=== PATIENT | female | born 1965 | race Caucasian/White ===

== ENCOUNTER 2021-10-13 12:36 | Outpatient (CLI) | payer BC, SELFPAY ==
[2021-10-13 15:47] LABS: Absolute Neutrophil Count 3.8 X10^3/uL (2.0-7.7); Basophil# 0.03 X10^3/uL; Basophil% 0.4 % (0-1); Eosinophil# 0.14 X10^3/uL; Eosinophils% 1.8 % (0-5); Hematocrit 41.3 % (37-47); Hemoglobin 14.1 g/dL (12.0-15.0); Mean Corp Hgb Conc 34.1 g/dL (32-36); Mean Corpuscular Hgb 30.9 pg (27.0-32.0); Mean Corpuscular Volume 90.4 fL (81-99); Mean Platelet Vol. 10.6 fl (6.2-12.0); Monocyte# 0.56 X10^3/uL; Monocyte% 7.1 % (0-10); NRBC Flagged by Analyzer 0 % (0-5); Neutrophil # 3.75 X10^3/uL (2.7-7.7); Neutrophil % 47.4 % (47-70); Platelet Count 303 K/mm3 (150-450); RBC Distribution Width CV 12.7 % (11.6-14.6); RBC Distribution Width SD 42.1 fl (35.1-43.9); Red Blood Count 4.57 M/mm3 (4.2-5.4); White Blood Count 7.9 K/mm3 (4.4-11.0)
[2021-10-13 16:30] LABS: Hemoglobin A1c 5.5 % (3.8-5.6); Progesterone Level 0.72 ng/mL (See Comment)
[2021-10-13 17:49] LABS: ALB/GLOB Ratio 1.1 RATIO (0.9-2.4); AST(SGOT) 16 U/L (15-37); Alanine Aminotransfer ALT/SGPT 28 U/L (13-56); Albumin, Serum 4.3 g/dL (3.2-5.0); Alkaline Phosphatase 96 U/L (45-117); Anion Gap 7 (5-15); BUN 16 mg/dL (7-18); BUN/Creat Ratio 22.8 RATIO (10-20); Calcium,Total 9.2 mg/dL (8.5-10.1); Chloride 103 mmol/L (98-107); Cholesterol 259 mg/dL (200); EST Glomerular Filtration Rate 92 mL/min (>60); Est Glom Filt Rate - Afr Amer 112 mL/min (>60); Estradiol 22.3 pg/mL; Ferritin 30 ng/mL (8-252); Globulin 3.9 g/dL (2.2-4.2); Glucose 72 mg/dL (74-106); High Density Lipoprotein 54 mg/dL; Iron 141 ug/dL (50-170); Potassium 3.5 mmol/L (3.5-5.1); Protein, Total 8.2 g/dL (6.4-8.2); Sodium Level 138 mmol/L (136-145); Triglycerides 316 mg/dL; Very Low Density Lipoprotein 63 mg/dL (5-40)
== END 2021-10-13 23:59 | disposition home or self-care (01) ==
LOC: LABSPEC 12:42
PROVIDERS: Visit Provider Nurse Practitioner Family
DX: R53.83 Other fatigue (principal); F41.9 Anxiety disorder, unspecified; U09.9 Post COVID-19 condition, unspecified; Z78.0 Asymptomatic menopausal state
CPT/HCPCS: 80053; 80061; 82627; 82670; 82728; 83036; 83540; 84144; 85025; 82626

== ENCOUNTER → 2022-08-10 | Outpatient (CLI) | payer BC, SELFPAY ==
[2022-08-10 15:47] LABS: Absolute Lymphocyte Count 2.79 X10^3/uL (0.83-4.51); Absolute Neutrophil Count 4.3 X10^3/uL (2.0-7.7); Basophil# 0.03 X10^3/uL; Basophil% 0.4 % (0-1); Eosinophil# 0.06 X10^3/uL; Eosinophils% 0.8 % (0-5); Hematocrit 39.3 % (37-47); Hemoglobin 13.7 g/dL (12.0-15.0); Lymphocyte # 2.79 X10^3/ul (0.83-4.51); Mean Corp Hgb Conc 34.9 g/dL (32-36); Mean Corpuscular Hgb 30.7 pg (27.0-32.0); Mean Corpuscular Volume 88.1 fL (81-99); Mean Platelet Vol. 10.3 fl (6.2-12.0); Monocyte# 0.39 X10^3/uL; Monocyte% 5.2 % (0-10); NRBC Flagged by Analyzer 0 % (0-5); Neutrophil # 4.25 X10^3/uL (2.7-7.7); Neutrophil % 56.2 % (47-70); Platelet Count 329 K/mm3 (150-450); RBC Distribution Width CV 13.1 % (11.6-14.6); RBC Distribution Width SD 42.2 fl (35.1-43.9); Red Blood Count 4.46 M/mm3 (4.2-5.4); White Blood Count 7.6 K/mm3 (4.4-11.0)
[2022-08-10 16:15] LABS: Hemoglobin A1c 5.6 % (3.8-5.6)
[2022-08-10 16:39] LABS: Progesterone Level 0.33 ng/mL (See Comment)
[2022-08-10 16:40] LABS: ALB/GLOB Ratio 1.2 RATIO (0.9-2.4); AST(SGOT) 15 U/L (15-37); Alanine Aminotransfer ALT/SGPT 28 U/L (13-56); Albumin, Serum 4.2 g/dL (3.2-5.0); Alkaline Phosphatase 93 U/L (45-117); Anion Gap 9 (5-15); BUN 9 mg/dL (7-18); BUN/Creat Ratio 15.3 RATIO (10-20); Calcium,Total 9.7 mg/dL (8.5-10.1); Chloride 104 mmol/L (98-107); Cholesterol 267 mg/dL (200); Creatinine, Serum 0.59 mg/dL (0.55-1.02); EST Glomerular Filtration Rate 112 mL/min (>60); Est Glom Filt Rate - Afr Amer 136 mL/min (>60); Estradiol < 11.0 pg/mL; Globulin 3.6 g/dL (2.2-4.2); Glucose 88 mg/dL (74-106); High Density Lipoprotein 59 mg/dL; Potassium 4.4 mmol/L (3.5-5.1); Protein, Total 7.8 g/dL (6.4-8.2); Sodium Level 142 mmol/L (136-145); Triglycerides 128 mg/dL; Very Low Density Lipoprotein 26 mg/dL (5-40)
== END | disposition home or self-care (01) ==
PROVIDERS: Referring Provider Nurse Practitioner Family; Visit Provider Nurse Practitioner Family
DX: I10 Essential (primary) hypertension (principal); R53.83 Other fatigue; E28.39 Other primary ovarian failure
CPT/HCPCS: 80053; 80061; 82627; 82670; 83036; 84144; 84403; 85025; 82626

== ENCOUNTER → 2022-09-01 | Outpatient (CLI) | payer BC, SELFPAY ==
--- NOTE | 2022-09-01 12:55 | ECHOD_ITS ---
Reason For Study: Edema Procedure This was a 2D Doppler, Color Flow transthoracic echocardiogram. Exam performed in department. Left Ventricle Normal LV size. The estimated ejection fraction is 70 %. No evidence for diastolic dysfunction. No regional wall motion abnormalities noted. Right Ventricle Normal RV size. Normal systolic function. Atria Normal left atrium. Normal right atrium. No doppler evidence for ASD. Bubble contrast study negative for right to left interatrial shunt. Mitral Valve There is no mitral valve stenosis. No mitral valve insufficiency. Tricuspid Valve There is no tricuspid stenosis. Trivial tricuspid valve insufficiency. Unable to estimate RV systolic pressure due to insufficient tricuspid regurgitant envelope. Aortic Valve Trisinus/trileaflet aortic valve. There is no aortic stenosis. No aortic valve insufficiency. Pulmonic Valve There is no pulmonic valvular stenosis. No pulmonic valve insufficiency. Great Vessels Normal aortic root. Pericardium/Pleural No pericardial effusion. Medication 20 gauge I.V. with prn adaptor inserted into left arm. Performed a rapid injection of agitated mix of 9 cc saline and 1cc air to assess for atrial septal defect. MMode/2D Measurements & Calculations LVIDd: 4.5 cm IVSd: 0.70 cm Ao root diam: 3.1 cm LVIDs: 2.4 cm LVPWd: 0.89 cm LA dimension: 3.9 cm RVDd: 3.1 cm FS: 46.8 % LAV(MOD-bp): 31.1 ml LA A4 area: 14.0 cm2 RA A4 area: 12.5 cm2 LAV(MOD-bp) Indexed: 14.9 ml/m2 LAV(MOD-sp2): 27.3 ml LAV(MOD-sp4): 34.4 ml Time Measurements MV dec time: 0.20 sec Doppler Measurements & Calculations MV E max best: 95.8 cm/sec Lat Peak E' Best: 12.7 cm/sec Med Peak E' Best: 10.6 cm/sec MV A max best: 89.7 cm/sec E/E' lat: 7.5 E/E' med: 9.0 MV E/A: 1.1 MV V2 max: 104.8 cm/sec MV P1/2t max best: 104.8 cm/sec Ao V2 max: 162.0 cm/sec MV max P.4 mmHg MV P1/2t: 65.1 msec Ao max P.5 mmHg MV V2 mean: 66.2 cm/sec MV dec slope: 471.3 cm/sec2 Ao V2 mean: 115.3 cm/sec MV mean P.0 mmHg Ao mean P.9 mmHg MV V2 VTI: 26.9 cm MVA(P1/2t): 3.4 cm2 Ao V2 VTI: 35.0 cm AV (velocity ratio): 0.84 LV V1 max: 140.5 cm/sec PA V2 max: 121.3 cm/sec LV V1 max P.9 mmHg PA V2 mean: 85.9 cm/sec LV V1 mean P.3 mmHg LV V1 mean: 96.6 cm/sec LV V1 VTI: 29.4 cm ECHO/Echo Complete Interpretation Summary The estimated ejection fraction is 70 %. No evidence for diastolic dysfunction. Ordering Physician: Rosie Arzola Performed By: Kapil Penny RCS
== END | disposition home or self-care (01) ==
PROVIDERS: Visit Provider Nurse Practitioner Family
DX: R60.9 Edema, unspecified (principal); I10 Essential (primary) hypertension; I07.1 Rheumatic tricuspid insufficiency
CPT/HCPCS: 93306; A4216

== ENCOUNTER 2022-09-26 18:38 | Emergency (ER) | payer BC, SELFPAY ==
[2022-09-26 18:39] VITALS: BP 191/74; PULSE 83; RESP 16; TEMP 37; O2SAT 99; BMI 40.2
--- NOTE | 2022-09-26 18:43 | EKG12_ITS ---
Test Reason : CP Blood Pressure : / mmHG Vent. Rate : 077 BPM Atrial Rate : 077 BPM P-R Int : 136 ms QRS Dur : 086 ms QT Int : 376 ms P-R-T Axes : 056 028 043 degrees QTc Int : 425 ms Normal sinus rhythm Cannot rule out Anterior infarct , age undetermined Abnormal ECG Confirmed by SUSAN FERGUSON, DEISY ([id number]), loan expeditor PARTH MEIER ([id number]) on 09/28/2022 9:55:37 AM Referred By: Confirmed By:DEISY DAVIS MD
--- NOTE | 2022-09-26 19:08 | RAD_ITS ---
EXAM: XR CHEST, 1 VIEW CLINICAL INDICATION: chest pain TECHNIQUE: Frontal view of the chest. This report was created using [employer] report generation technology. COMPARISON: None. FINDINGS: LUNGS AND PLEURAL SPACES: Unremarkable. No consolidation or edema. No pneumothorax. No effusion. HEART: Unremarkable. Cardiac silhouette not enlarged. MEDIASTINUM: Central airways and mediastinal contour are unremarkable. BONES/JOINTS: Unremarkable. SOFT TISSUES: Unremarkable. RAD/Chest 1 View (Portable) IMPRESSION: No radiographic evidence of acute cardiopulmonary disease. Electronically Signed: Cullen Hernandez MD at 19:38 EDT ,
[2022-09-26 19:28] LABS: Absolute Lymphocyte Count 4.12 X10^3/uL (0.83-4.51); Absolute Neutrophil Count 5.8 X10^3/uL (2.0-7.7); Basophil# 0.02 X10^3/uL; Basophil% 0.2 % (0-1); Eosinophil# 0.11 X10^3/uL; Hematocrit 41.1 % (37-47); Hemoglobin 13.8 g/dL (12.0-15.0); Lymphocyte # 4.12 X10^3/ul (0.83-4.51); Lymphocyte % 38.1 % (19-41); Mean Corp Hgb Conc 33.6 g/dL (32-36); Mean Corpuscular Hgb 31.1 pg (27.0-32.0); Mean Corpuscular Volume 92.6 fL (81-99); Mean Platelet Vol. 9.7 fl (6.2-12.0); Monocyte# 0.71 X10^3/uL; Monocyte% 6.6 % (0-10); NRBC Flagged by Analyzer 0 % (0-5); Neutrophil # 5.82 X10^3/uL (2.7-7.7); Neutrophil % 53.7 % (47-70); Platelet Count 310 K/mm3 (150-450); RBC Distribution Width CV 13.4 % (11.6-14.6); RBC Distribution Width SD 45.6 fl (35.1-43.9); Red Blood Count 4.44 M/mm3 (4.2-5.4); White Blood Count 10.8 K/mm3 (4.4-11.0)
[2022-09-26 20:02] LABS: Anion Gap 4 (5-15); BUN 16 mg/dL (7-18); BUN/Creat Ratio 22.2 RATIO (10-20); Calcium,Total 9.1 mg/dL (8.5-10.1); Chloride 102 mmol/L (98-107); Creatinine, Serum 0.72 mg/dL (0.55-1.02); EST Glomerular Filtration Rate 89 mL/min (>60); Est Glom Filt Rate - Afr Amer 108 mL/min (>60); Estimated Creatinine Clearance 79.44 ml/min; Glucose 91 mg/dL (74-106); Potassium 3.6 mmol/L (3.5-5.1); Sodium Level 136 mmol/L (136-145); Troponin-I HS 4 pg/mL (3.0-54.0)
[2022-09-26 20:55] VITALS: PULSE 89; RESP 17; O2SAT 99
--- NOTE | 2022-09-26 21:04 | EDS_ITS ---
HPI History of Present Illness Chief Complaint: Chest Pain Informant: patient and other (PE at urgent care) Onset/Context/Timing Onset: Today, Yesterday and Month(s) (June and August) Activity at onset: sudden Timing: Intermittent (Hours) Quality: Positive for - (There is a musculoskeletal component, pleuritic component and a discomfort in the middle of her chest as well) Current Severity: Mild Maximum Severity: Moderate Worsened By: Movement of Torso and Breathing Relieved By: Nothing Associated Symptoms: Negative for Nausea, Vomiting, Diaphoresis, Dyspnea, Cough, Fever, Lightheadedness, Acid Reflux or Palpitations Narrative Narrative: Patient is a 57-year-old woman with no known history of coronary disease or VTE. She presents because of chest discomfort she experienced in June and in August. She had pain that started yesterday and lasted for hours. She was pain-free when she went to bed. When she awoke she is not certain whether she had pain or not. The pain did not awaken her from sleep. The pain is lasted hours as well. Pain does not radiate. There is a musculoskeletal component which is made worse with turning of her torso. There is also discomfort when she breeze. She denies associated symptoms. She denies radiation of the pain. She denies leg pain, swelling or discoloration. She has no risk factors for VTE. She denies upper abdominal pain. She denies intolerance to greasy or fried foods. Prior Similar Symptoms: No Recent Illness/Hospitalization: No CVD Risk Factors: Positive for Hypertension and Hypercholesterolemia; Negative for Diabetes, Family History 1' </=55 or Smoking PE Risk Factors: Negative for Recent Travel/Surgery, Recent Immobilization, [place] or DVT or PE, Cancer or OCP + Smoking + >/=35 TAD Risk Factors: Negative for Marfan's Syndrome or Family History PFSH PFSH Medical History no medical history no medical history (Documented in the HPI.) Allergy/AdvReac Type Severity Reaction Status Date / Time No Known Allergies Allergy Verified 09/26/22 18:42 Social History (Updated 09/26/22 @ 21:[address] Arnie Zaldivar MD) household members: spouse Smoking Status: Never smoker substance use type: does not use ROS ROS ED Constitutional Constitutional ED: Denies chills, fever(s), subjective, sweats or weight loss Eyes Eyes: Reports none; Denies blurry vision, change in vision or diplopia ENT ENT ED: Denies ear pain, rhinorrhea or sore throat Cardiovascular Cardiovascular: Reports as per HPI; Denies orthopnea or paroxysmal nocturnal dyspnea Respiratory/Chest Respiratory/Chest: Denies cough, dyspnea, dyspnea on exertion, orthopnea, paroxysmal nocturnal dyspnea or sputum Gastrointestinal Gastrointestinal: Denies abdominal pain, constipation, diarrhea, melena, nausea or vomiting Genitourinary Genitourinary ED: Denies dysuria, hematuria or urinary frequency Musculoskeletal Musculoskeletal: Denies arthralgias, back pain, myalgias or neck pain Integumentary Denies abscess, Abrasions or rash Neurologic Neurologic: Denies headache(s), paresthesias or weakness Psychiatric Psychiatric: Denies anxiety or depression Endocrine Endocrinology: Denies cold intolerance, heat intolerance, polydipsia or polyuria Hematologic/Lymphatic Hematologic/Lymphatic: Denies easy bleeding or easy bruising EXAM Physical Exam Const Vital Signs: 09/26/22 18:39 09/26/22 20:55 09/26/22 20:55 Temperature 98.6 F Temperature Source Temporal Pulse Rate 83 89 Respiratory Rate 16 17 Blood Pressure 191/74 H Blood Pressure Mean 113 Pulse Ox 99 99 Oxygen Delivery Method Room Air Room Air Room Air Positive well developed and obese; Negative for well nourished General Appearance ED: well developed and NAD; Negative for pallor Nutritional Appearance: obese HEENT Reports moist mucous membranes normocephalic and atraumatic Eyes PERRL and EOMs intact bilaterally General Eye ED: Negative for pale conjunctiva or scleral icterus Neck no lymphadenopathy, supple and no JVD General: Negative for tenderness Chest Wall inspection of chest normal and palpation of chest normal Resp normal respiratory effort Cardio regular rate, regular rhythm, S1 normal heart sound, S2 normal heart sound and no murmurs GI normal to inspection, nondistended, normoactive bowel sounds, soft to palpation, non-tender, non-distended and no masses; Negative for hepatosplenomegaly Back/Spine no CVA tenderness Extremity normal to inspection Extremity Narrative: There is no asymmetry, swelling, discoloration, leg vein distention, palpable cords or tenderness along the distribution of the deep venous system. Neuro oriented x3, CN's II-XII intact bilaterally and no sensory deficits noted Sensorium / Orientation: awake and alert Psych mental status grossly normal Psych Narrative: Patient states has been under significant stress and believes the chest pain may be due to stress. Skin no rashes or lesions noted and no wounds General Skin Exam: Negative for jaundice or pallor Heart Score History: Slightly/Non-Suspicious ECG: Normal Age: >45 - <65 years Risk Factors: 1 or 2 Risk Factors Troponin: </= Normal Limit Score: 2 MDM MDM MDM Narrative Medical decision making narrative: Presents with chest pain. Differential is noncardiac versus cardiac. Need to evaluate for pulmonary and GI as well. Nurse protocol orders were initiated. History & Record Review Discussion w/independent historian: Significant other Lab Data Attestation: I reviewed the patient's lab results. Lab results narrative: CBC is unremarkable. BMP is unremarkable. Troponin with hours of pain is normal, 4. A normal EKG normal troponin cardiac etiology has been ruled out. Labs: Laboratory Results - last 24 hr 09/26/22 09/26/22 19:16 19:16 WBC 10.8 RBC 4.44 Hgb 13.8 Hct 41.1 MCV 92.6 MCH 31.1 MCHC 33.6 RDW Std Deviation 45.6 H RDW Coeff of Olivia 13.4 Plt Count 310 MPV 9.7 Immature Gran % (Auto) 0.400 Neut % (Auto) 53.7 Lymph % (Auto) 38.1 [place] % (Auto) 6.6 Eos % (Auto) 1.0 Baso % (Auto) 0.2 Absolute Neuts (auto) 5.8 Absolute Lymphs (auto) 4.12 Nucleated RBC % 0 Sodium 136 Potassium 3.6 Chloride 102 Carbon Dioxide 30.0 Anion Gap 4 L BUN 16 Creatinine 0.72 Estim Creat Clear Calc 79.44 Est GFR (MDRD) Af Amer 108 Est GFR (MDRD) Non-Af 89 BUN/Creatinine Ratio 22.2 H Glucose 91 Calcium 9.1 Troponin I High Sens 4 Radiography Chest X-Ray - ED: 1 View and Read by ED Physician (Normal cardiac silhouette and size. Perihilar region normal. There is no widening the mediastinum. There is no abnormality the lung parenchyma. Osseous and remarkable.) Diagnostic Testing: Clinical Impression(s) from Imaging Studies Chest X-Ray 09/26/22 19:08 IMPRESSION: No radiographic evidence of acute cardiopulmonary disease. Electronically Signed: Cullen Hernandez MD at 19:38 EDT Reading Location ID and State: [facility] / [place] , Service support , EKG Initial EKG: Attestation: I personally reviewed and interpreted this EKG as follows: Interpretation: Sinus Rhythm (The EKG is normal. I disagree that the EKG reveals anterior WA. Ventricular rate 77. GA interval is under 36 ms. Cures duration 86 ms. QT duration 376 ms. 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 She is discharged to home. Discharge Plan Triage Chief Complaint: Chest Pain ED Provider: Arnie Zaldivar Dx/Rx/DC Orders Clinical Impression: Non-cardiac chest pain, Elevated cholesterol, Hypertension, Stress Instructions: Stress Relief: Relaxation, ED Chest Pain, Noncardiac Primary Care Provider: Rosie Arzola NP Referrals: NOT,DEFINED [Non-Staff] - Rosie Arzola NP, DINKEY OPERATOR [facility] [Primary Care Provider] - 3-5 Days if not improving Disposition Disposition: Home, Self Care
[2022-09-26 21:08] VITALS: PULSE 79; O2SAT 98
[2022-09-26 21:18] VITALS: BP 129/78; PULSE 74; RESP 15; O2SAT 99
== END 2022-09-26 21:23 | disposition home or self-care (01) ==
PROVIDERS: Emergency Provider Emergency Medicine; PCP Nurse Practitioner Family; Visit Provider Emergency Medicine
DX: R07.89 Other chest pain (principal); I10 Essential (primary) hypertension; E78.00 Pure hypercholesterolemia, unspecified; Z79.899 Other long term (current) drug therapy
CPT/HCPCS: 71045; 80048; 84484; 85025; 93005; 99285; A4216

== ENCOUNTER → 2024-01-18 | Outpatient (REF) | payer BC, SELFPAY ==
[2024-01-18 17:11] LABS: Estradiol 24.4 pg/mL; Free T3 2.3 pg/mL (2.18-3.98); T4 Free Direct 0.76 ng/dL (0.76-1.46)
[2024-01-20 04:07] LABS: PROGESTERONE 0.8 ng/mL (.)
== END ==
LOC: BIMLAB 15:21
PROVIDERS: PCP Nurse Practitioner Family; Referring Provider Nurse Practitioner Family; Visit Provider Nurse Practitioner Family
DX: I10 Essential (primary) hypertension (principal); E28.39 Other primary ovarian failure; R53.83 Other fatigue
CPT/HCPCS: 36415; 82627; 82670; 84144; 84403; 84439; 84481; 82626

== ENCOUNTER 2024-02-05 21:31 | Observation (INO) | payer BC, SELFPAY ==
[2024-02-05 21:35] VITALS: BP 174/85; PULSE 110; RESP 18; TEMP 36.3; O2SAT 100; BMI 28.3
[2024-02-05 21:38] VITALS: BP 178/80; PULSE 96; RESP 15; O2SAT 98
--- NOTE | 2024-02-05 21:38 | CT_ITS ---
We are attempting to reach an attending provider to discuss findings. An addendum with communication details will be sent when the communication is complete. STUDY: CTA HEAD AND NECK WITH CONTRAST REASON FOR EXAM: Female, 58 years old. Neuro deficit, acute, stroke suspected RADIATION DOSAGE (If Supplied By Facility): CTDIvol = ( 22.83 ) mGy, DLP = ( 840.29 ) mGycm TECHNIQUE: CT angiography was performed with a multi-detector CT scanner. Data acquisition was obtained from the skull base through the vertex following intravenous administration of IV 100mL [id number]-370. MIP images were reconstructed from the axial data set. Post-processing of the angiographic images was performed, with multiplanar reformation and 3D reconstruction. Individualized dose optimization techniques were used for this CT. The protocol utilizes one or more of the following dose reduction techniques: automated exposure control, adjustment of mA and/or kV according to patient size,and/or use of iterative reconstruction technique. COMPARISON: CT brain today. FINDINGS: Normal bilateral petrous carotid arteries. Normal right cavernous carotid artery with a normal supraclinoid bifurcation. Normal left cavernous carotid artery with a normal supraclinoid bifurcation. Normal right A1 segments of the anterior cerebral artery. Normal left A1 segments of the anterior cerebral artery. Normal intact anterior communicating artery (ACOM). Normal bilateral A2 segments of the anterior cerebral arteries. Normal right M1 and M2 segments of the middle cerebral arteries, with a normal M1 bifurcation. Normal left M1 and M2 segments of the middle cerebral arteries, with a normal M1 bifurcation. There is a persistent origin of the right posterior cerebral artery with absence of the posterior communicating artery (PCOM). There is a persistent origin of the left posterior cerebral artery with absence of the posterior communicating artery (PCOM). Right vertebral artery may terminate as the PICA. Left vertebral artery appears normal. Basilar artery appears atretic. The visualized bilateral superior cerebellar (SCA) arteries are normal. Normal bilateral P1, P2 and visualized P3 segments of the posterior cerebral arteries. There is no demonstrated aneurysm of the [place]. There is no demonstrated abnormality of the visualized brain. AORTIC ARCH: Normal visualized aortic arch. Normal origins of the brachiocephalic, left common carotid, and left subclavian arteries. RIGHT CAROTID ARTERIES: Normal right common carotid artery (CCA). Normal right common carotid bulb. Normal origin of the right internal carotid (ICA) artery without a hemodynamically significant stenosis. Normal visualized cervical portion of the right internal carotid artery. Normal origin of the right external carotid artery (ECA). LEFT CAROTID ARTERIES: Normal left common carotid artery (CCA). Normal left common carotid bulb. Normal origin of the left internal carotid (ICA) artery without a hemodynamically significant stenosis. Normal visualized cervical portion of the left internal carotid artery. Normal origin of the left external carotid artery (ECA). VERTEBRAL ARTERIES: Right vertebral artery appears to terminate as the PICA. Left vertebral artery appears normal. CT/STROKE CTA Head AND Neck W/Con IMPRESSION: Sensitivity limited due to suboptimal 3-D reformats otherwise Normal CTA Head and neck with contrast. Electronically Signed: Tien Dunn MD at 22:14 EDT ,
--- NOTE | 2024-02-05 21:38 | EKG12_ITS ---
Test Reason : DYSRHYTHMIA Blood Pressure : / mmHG Vent. Rate : 084 BPM Atrial Rate : 084 BPM P-R Int : 154 ms QRS Dur : 084 ms QT Int : 364 ms P-R-T Axes : 065 027 045 degrees QTc Int : 430 ms Normal sinus rhythm Possible Left atrial enlargement Low voltage QRS Borderline ECG Confirmed by Crow Kerr ([id number]), video tape editor PARTH MEIER ([id number]) on 02/06/2024 2:08:42 PM Referred By: Confirmed By:Crow Kerr
--- NOTE | 2024-02-05 21:38 | CT_ITS ---
We are attempting to reach an attending provider to discuss findings. An addendum with communication details will be sent when the communication is complete. STUDY: CT BRAIN WITHOUT CONTRAST REASON FOR EXAM: Female, 58 years old. Neuro deficit, acute, stroke suspected RADIATION DOSAGE (If Supplied By Facility): CTDIvol = ( ) mGy, DLP = ( 846.73 ) mGycm TECHNIQUE: Transaxial CT imaging of the brain was performed without administration of intravenous contrast material. Individualized dose optimization techniques were used for this CT. The protocol utilizes one or more of the following dose reduction techniques: automated exposure control, adjustment of mA and/or kV according to patient size,and/or use of iterative reconstruction technique. COMPARISON: No relevant priors. FINDINGS: Normal soft tissue structures. Normal calvarium. Normal size ventricles and extra-axial spaces for the patient''s age. Normal white matter tracts of the cerebral hemispheres. Normal basal ganglia and thalami. Normal brainstem. Normal cerebellum. There is no intracranial hemorrhage. There are no findings of an acute ischemic infarction. Normal visualized paranasal sinuses. CT/STROKE Brain/Head without Cont IMPRESSION: Normal unenhanced CT scan of the brain. Electronically Signed: Tien Dunn MD at 21:56 EDT ,
--- NOTE | 2024-02-05 21:39 | ED.VIS.STROK ---
HPI History of Present Illness Chief Complaint: Stroke Alert Detail of Chief Complaint: Blurred vision, numbness right side and dizziness with right occipital head Informant: patient and spouse/S.O. Onset/Context/Timing Onset: Today (Approximate 1 hour prior to presentation) Context: Sudden Onset Timing: Continuous (Patient reports vision is better. Headache has not changed. Numbness has improved) Quality and Location: Positive for Right Face Paresthesia, Right Arm Parasthesia, Right Leg Parasthesia and - (Blurred vision right eye and complains of dizziness) Current Severity: Mild Maximum Severity: Mild Worsened by: Nothing Relieved by: Nothing Associated Symptoms Associated Symptoms: Positive for Headache; Negative for Nausea, Vomiting or Chest Pain Narrative Narrative: Patient is a 58-year-old woman. She has history of hypertension. Family history of TIA/strokes who presents with blurred vision right eye, dizziness, right occipital headache, numbness right side. She denies double vision. She denies loss of vision. She denies partial loss of vision. Denies trouble with speech or swallowing. She denies cardiac respiratory symptoms. She denies GI symptoms. She denies problems with coordination or balance. Patient is upset and crying. Prior similar symptoms: No Recent Illness/Hospitalization: No PFSH [facility] Medical History (Updated 02/05/24 @ 22:[address] Arnie Zaldivar MD) Carpal tunnel syndrome Home Medications ?Medication ?Instructions ?Recorded ?Last Taken ?Type Biest 02/05/24 Unknown History losartan 100 mg tablet mg 02/05/24 Unknown History progesterone micronized 200 mg 200 mg PO QHS 02/05/24 Unknown History capsule Allergy/AdvReac Type Severity Reaction Status Date / Time No Known Allergies Allergy Verified 09/26/22 18:42 Surgical History (Updated 02/05/24 @ 22:06 by Mag Arellano) Hx of LASIK H/O spinal fusion Social History (Updated 09/26/22 @ 21:[address] Arnie Zaldivar MD) household members: spouse Smoking Status: Never smoker substance use type: does not use ROS ROS ED Constitutional Constitutional ED: Denies chills, fever(s) or subjective Eyes Eyes: Reports blurry vision right; Denies change in vision or diplopia ENT ENT ED: Denies ear pain, rhinorrhea or sore throat Cardiovascular Cardiovascular: Denies chest pain, palpitations or paroxysmal nocturnal dyspnea Respiratory/Chest Respiratory/Chest: Denies cough, dyspnea, dyspnea on exertion or paroxysmal nocturnal dyspnea Gastrointestinal Gastrointestinal: Denies abdominal pain, diarrhea, nausea or vomiting Genitourinary Genitourinary ED: Denies dysuria, hematuria or urinary frequency Musculoskeletal Musculoskeletal: Denies arthralgias, back pain, myalgias or neck pain Integumentary Denies abscess or rash Neurologic Neurologic: Reports headache(s), paresthesias and weakness Psychiatric Psychiatric: Reports anxiety; Denies depression Endocrine Endocrinology: Denies polydipsia, polyphagia or polyuria Hematologic/Lymphatic Hematologic/Lymphatic: Denies easy bleeding or easy bruising EXAM Physical Exam Const Vital Signs: 02/05/24 21:35 02/05/24 21:38 02/05/24 21:46 Temperature 97.3 F L Temperature Source Temporal Pulse Rate 110 H 96 110 H Respiratory Rate 18 15 18 Blood Pressure 174/85 H 178/80 H 174/83 H Blood Pressure Mean 114 112 113 Pulse Ox 100 98 100 Oxygen Delivery Method Room Air Room Air Room Air 02/05/24 22:08 02/05/24 22:11 Temperature Temperature Source Pulse Rate 89 Respiratory Rate 17 Blood Pressure 178/80 H Blood Pressure Mean 112 Pulse Ox 98 97 Oxygen Delivery Method Room Air Room Air Positive well nourished and well developed Constitutional Narrative: Blood pressure is elevated 174/85. Heart rate is 110. General Appearance ED: well developed and NAD HEENT Reports moist mucous membranes atraumatic Eyes PERRL and EOMs intact bilaterally Eyes Narrative: There is no nystagmus. There is no visual field cut. She still reports blurriness right eye. General Eye ED: Negative for pale conjunctiva or scleral icterus Neck no lymphadenopathy, supple and no JVD Chest Wall inspection of chest normal and palpation of chest normal Resp normal respiratory effort and clear to auscultation bilaterally Cardio no murmurs Rate: regular rate Rhythm: regular rhythm Heart Sounds: S1 normal and S2 normal GI normal to inspection, nondistended, normoactive bowel sounds, soft to palpation, non-tender, non-distended and no masses Extremity normal to inspection General Extremety ED: Negative for deformity or edema General Extremity: Negative for deformity or edema Neuro oriented x3, CN's II-XII intact bilaterally and No no sensory deficits noted Domingo Coma Scale: document GCS findings Spontaneous Obeys Commands Oriented 15 Sensorium / Orientation: alert Speech: speech normal Motor Exam: strength 5/5 throughout Psych Mood & Affect: anxious Skin no wounds General Skin Exam: Negative for jaundice Lesions: no lesions Rashes: no rashes NIHSS NIHSS Initial: 1a Level of Consciousness: 0 1b LOC Questions (Score 2 if aphasic/stupor): 0 1c LOC Commands (Only score 1st attempt): 0 2 Best Gaze (If aphasic, use reflexive mvmts.): 0 3 Visual: 0 4 Facial Palsy: 0 5 Motor Arm Right (UN = amputation/fusion): 0 5 Motor Arm Left: 0 6 Motor Leg Right: 0 6 Motor Leg Left: 0 7 Limb ataxia (Only + if out of proportion): 0 8 Sensory (Aphasia/stupor=0 or 1, coma=2): 1 9 Best Language: 0 10 Dysarthria (mute, coma=2, intubated=UN): 0 11 Extinction and Inattention (only scored if +): 0 Total Score: 1 MDM MDM MDM Narrative Medical decision making narrative: Patient with strokelike symptoms. Patient was seen in triage. Orders were then placed. Patient's NIH is 1. With complaint of dizziness and headache need to obtain CT to rule out intracranial bleed versus ischemic CVA. CT of the head as well as CTA of the head and neck were ordered per stroke protocol. Appropriate blood work was ordered. Will monitor blood pressure. If there is no evidence of hemorrhage will allow for permissive hypertension. Lab Data Attestation: I reviewed the patient's lab results. Lab results narrative: White count is slightly elevated. There is predominance of lymphocytes. Coags are unremarkable. Electrolyte panel is unremarkable. Glucose is slightly elevated 114. Labs: Laboratory Results - last 24 hr 02/05/24 21:50 WBC 11.7 H RBC 4.81 Hgb 14.4 Hct 43.0 MCV 89.4 MCH 29.9 MCHC 33.5 RDW Std Deviation 42.6 RDW Coeff of Olivia 13.1 Plt Count 322 MPV 10.0 Immature Gran % (Auto) 0.300 Neut % (Auto) 49.3 Lymph % (Auto) 42.0 H [place] % (Auto) 6.8 Eos % (Auto) 1.3 Baso % (Auto) 0.3 Absolute Neuts (auto) 5.8 Absolute Lymphs (auto) 4.90 H Nucleated RBC % 0 PT 11.6 L INR 0.9 APTT 28.2 Sodium 140 Potassium 3.3 L Chloride 104 Carbon Dioxide 28.0 Anion Gap 8 BUN 14 Creatinine 0.97 Estim Creat Clear Calc 75.26 Est GFR (MDRD) Af Amer 76 Est GFR (MDRD) Non-Af 63 BUN/Creatinine Ratio 14.4 Glucose 114 H Calcium 9.4 Troponin I High Sens 4 Radiography Diagnostic Testing: Clinical Impression(s) from Imaging Studies Brain CT 02/05/24 21:38 IMPRESSION: Normal unenhanced CT scan of the brain. Electronically Signed: Tien Dunn MD at 21:56 EDT Reading Location ID and State: [address] [place] [address] Tel , Service support , ADDENDUM: 02/05/242204 IMPRESSION: Normal unenhanced CT scan of the brain. N.B. : The above Results were Read Back by Tien Dunn MD to Arnie Zaldivar MD, and understanding confirmed on 02/05/2024 21:58:08 (ET). Electronically Signed: Tien Dunn MD at 21:56 EDT Reading Location ID and State: [address] [place] [address] Tel , Service support , ADDENDUM: 02/05/242206 IMPRESSION: Normal unenhanced CT scan of the brain. N.B. : The above Results were Read Back by Tien Dunn MD to Arnie Zaldivar MD, and understanding confirmed on 02/05/2024 22:00:25 (ET). Electronically Signed: Tien Dunn MD at 21:56 EDT Reading Location ID and State: [email or web address] / [place] Tel , Service support , Head/Neck CTA 02/05/24 21:38 IMPRESSION: Sensitivity limited due to suboptimal 3-D reformats otherwise Normal CTA Head and neck with contrast. Electronically Signed: Tien Dunn MD at 22:14 EDT Reading Location ID and State: [facility] / [place] Tel , Service support , ADDENDUM: 02/05/242221 IMPRESSION: Sensitivity limited due to suboptimal 3-D reformats otherwise Normal CTA Head and neck with contrast. N.B. : The above Results were Read Back by Tien Dunn MD to Arnie Zaldivar MD, and understanding confirmed on 02/05/2024 22:16:18 (ET). Electronically Signed: Tien Dunn MD at 22:14 EDT , EKG Initial EKG: Attestation: I personally reviewed and interpreted this EKG as follows: Interpretation: Sinus Rhythm (Sinus rhythm of 84. Parables 154 ms. QRS duration 84 ms per QT duration 3 and 64 ms. Morenci is normal. There is evidence of low voltage which may be due to body habitus.) Treatment and Re-Evaluation Narrative: The nurse informing that patient's main complaint of headache intermittently for the past week or 2. Stroke Documentation Questions Stroke Team Activated: Yes Reviewed Inclusion/Exclusion criteria: Yes No contraindications from thrombolytic administration: Yes Discharge Plan Triage Chief Complaint: Stroke Alert Other Complaint: Dizziness ED Provider: Arnie Zaldivar Dx/Rx/DC Orders Clinical Impression: Paresthesia of right upper extremity, Blurred vision, right eye, Occipital headache Prescriptions: No Action losartan 100 mg tablet Patient Comments: Take 1 tablet (100 mg) by mouth once daily. progesterone micronized 200 mg capsule 200 mg PO QHS Biest 0.25 mg cream Primary Care Provider: Rosie Arzola NP Referrals: Rosie Arzola SCIENTIFIC EDITOR, SCIENTIFIC EDITOR-C [Primary Care Provider] - Print Language: Mosotho
[2024-02-05 21:46] VITALS: BP 174/83; PULSE 110; RESP 18; O2SAT 100
[2024-02-05 21:56] VITALS: BMI 37.4
[2024-02-05 22:08] VITALS: BP 178/80; PULSE 89; RESP 17; O2SAT 98
[2024-02-05 22:08] LABS: Absolute Neutrophil Count 5.8 X10^3/uL (2.0-7.7); Basophil# 0.04 X10^3/uL; Basophil% 0.3 % (0-1); Eosinophil# 0.15 X10^3/uL; Eosinophils% 1.3 % (0-5); Hemoglobin 14.4 g/dL (12.0-15.0); Mean Corp Hgb Conc 33.5 g/dL (32-36); Mean Corpuscular Hgb 29.9 pg (27.0-32.0); Mean Corpuscular Volume 89.4 fL (81-99); Monocyte# 0.79 X10^3/uL; Monocyte% 6.8 % (0-10); NRBC Flagged by Analyzer 0 % (0-5); Neutrophil # 5.76 X10^3/uL (2.7-7.7); Neutrophil % 49.3 % (47-70); Platelet Count 322 K/mm3 (150-450); RBC Distribution Width CV 13.1 % (11.6-14.6); RBC Distribution Width SD 42.6 fl (35.1-43.9); Red Blood Count 4.81 M/mm3 (4.2-5.4); White Blood Count 11.7 K/mm3 (4.4-11.0)
[2024-02-05 22:11] VITALS: O2SAT 97
[2024-02-05 22:17] LABS: International Normalized Ratio 0.9; Prothrombin Time (Protime)PT. 11.6 SECONDS (11.7-14.9)
[2024-02-05 22:18] LABS: Partial Thromboplast Time 28.2 Seconds (24.1-36.2)
[2024-02-05 22:28] LABS: Anion Gap 8 (5-15); BUN 14 mg/dL (7-18); BUN/Creat Ratio 14.4 RATIO (10-20); Calcium,Total 9.4 mg/dL (8.5-10.1); Chloride 104 mmol/L (98-107); Creatinine, Serum 0.97 mg/dL (0.55-1.02); EST Glomerular Filtration Rate 63 mL/min (>60); Est Glom Filt Rate - Afr Amer 76 mL/min (>60); Estimated Creatinine Clearance 75.26 ml/min; Glucose 114 mg/dL (74-106); Potassium 3.3 mmol/L (3.5-5.1); Sodium Level 140 mmol/L (136-145); Troponin-I HS 4 pg/mL (3.0-54.0)
--- NOTE | 2024-02-05 22:42 | RAD_ITS ---
STUDY: X-RAY CHEST REASON FOR EXAM: Female, 58 years old. Neuro deficit, acute, stroke suspected TECHNIQUE: Single frontal view of the chest. COMPARISON: September 26, 2022 FINDINGS: The lungs are clear and expanded. There is no demonstrated pleural abnormality. Normal size heart. Normal mediastinum and garcía. Normal visualized pulmonary arteries. Normal visualized aortic arch and descending thoracic aorta. Normal visualized thoracic spine. Normal visualized ribs, clavicles, and shoulders. There is no demonstrated abnormality of the visualized soft tissue structures of the upper abdomen. RAD/Chest 1 View IMPRESSION: Normal x-ray examination of the chest. Electronically Signed: Tien Dunn MD at 23:11 EDT ,
[2024-02-05 23:00] VITALS: BP 161/78; PULSE 97; RESP 18; O2SAT 100; BMI 40.4
--- NOTE | 2024-02-05 23:23 | PCM.HP.STD ---
HPI - General General Date of Admission: 02/05/24 Date of Service: 02/05/24 Chief Complaint: Right eye blurry vision and right sided weakness HPI Narrative GARTH BARBER, is a 58 F who presents to the hospital due to acute change in vision in her right eye along with right arm and leg weakness. Onset of symptoms began earlier this evening when patient was playing cards with her family she states she suddenly had a headache that was in the right occipital region of her head followed by increasing blurry vision in her right eye and weakness of her right arm and leg. The symptoms were transient and subsequently have resolved completely since her arrival into the emergency room. CT of the head was within normal limits as was CT angiogram of head and neck. Teleneurology consult was obtained and felt necessary to admit the patient for observation to get an MRI in the morning as well as an echocardiogram. Patient currently has an NIH scale 0. She does not routinely follow with any medical practitioner however she has been diagnosed with hypertension and takes medication for that. She admits to being more holistic in her approach to medicine and does not believe in traditional medicine per se. Currently the patient denies any chest pain, shortness of breath, fevers chills nausea vomiting or diarrhea. Patient will be admitted to progressive care unit for observation and workup as above [facility] Medical History (Updated 02/05/24 @ 23:[address] Jorge Wiggins MD) Carpal tunnel syndrome Home Medications ?Medication ?Instructions ?Recorded ?Last Taken ?Type Biest 02/05/24 Unknown History losartan 100 mg tablet mg 02/05/24 Unknown History progesterone micronized 200 mg 200 mg PO QHS 02/05/24 Unknown History capsule Allergy/AdvReac Type Severity Reaction Status Date / Time No Known Allergies Allergy Verified 09/26/22 18:42 Surgical History (Updated 02/05/24 @ 22:06 by Mag Arellano) Hx of LASIK H/O spinal fusion Social History (Updated 09/26/22 @ 21:[address] Arnie Zaldivar MD) household members: spouse Smoking Status: Never smoker substance use type: does not use ROS Constitutional Constitutional: Denies chills or fever(s) Eyes Eyes: Reports blurry vision and change in vision ENT HEENT: Denies abnormal hearing Cardiovascular Cardiovascular: Denies chest pain Respiratory/Chest Respiratory/Chest: Denies shortness of breath at rest Gastrointestinal Gastrointestinal: Denies abdominal pain Genitourinary Genitourinary: Denies dysuria Musculoskeletal Musculoskeletal: Reports muscle weakness; Denies back pain Integumentary Integumentary: Denies dry skin Neurologic Neurologic: Denies abnormal speech Psychiatric Psychiatric: Denies anxiety Vital Signs Vital Signs Vital Signs: 02/05/24 21:35 02/05/24 21:38 02/05/24 21:46 Temperature 97.3 F L Temperature Source Temporal Pulse Rate 110 H 96 110 H Respiratory Rate 18 15 18 Blood Pressure 174/85 H 178/80 H 174/83 H Blood Pressure Mean 114 112 113 Pulse Ox 100 98 100 Oxygen Delivery Method Room Air Room Air Room Air 02/05/24 22:08 02/05/24 22:11 Temperature Temperature Source Pulse Rate 89 Respiratory Rate 17 Blood Pressure 178/80 H Blood Pressure Mean 112 Pulse Ox 98 97 Oxygen Delivery Method Room Air Room Air Weight Weight: 224 lb 13.944 oz Body Mass Index (BMI) 37.4 Physical Exam Const alert, oriented x3, no apparent distress and well nourished General Appearance: cooperative and well developed HEENT normocephalic, head/scalp atraumatic, moist oral mucous membranes and oropharynx normal Eyes PERRL and EOMs intact bilaterally Neck no lymphadenopathy, supple and no JVD General: trachea midline; Negative for lymphadenopathy Lymph Lymphatic: Negative for no lymphadenopathy noted Resp normal respiratory effort, normal air movement and clear to auscultation bilaterally Cardio regular rate, regular rhythm, S1 normal heart sound, S2 normal heart sound and no murmurs GI normal to inspection, nondistended, normoactive bowel sounds Extremity normal capillary refill Skin General Skin Exam: no breakdown Neuro CN's II-XII intact bilaterally, no focal motor deficits and no sensory deficits noted Coordination / Balance: [id number] test normal and [id number] test normal Speech: speech normal Motor Exam: strength 5/5 throughout Psych thought process normal, cooperative and affect normal Appearance: appropriate Results Lab / Micro Data 02/05/24 21:50 02/05/24 21:50 Labs: Laboratory Results - last 24 hr 02/05/24 21:50: WBC 11.7 H, RBC 4.81, Hgb 14.4, Hct 43.0, MCV 89.4, MCH 29.9, MCHC 33.5, RDW Std Deviation 42.6, RDW Coeff of Olivia 13.1, Plt Count 322, MPV 10.0, Immature Gran % (Auto) 0.300, Neut % (Auto) 49.3, Lymph % (Auto) 42.0 H, [place] % (Auto) 6.8, Eos % (Auto) 1.3, Baso % (Auto) 0.3, Absolute Neuts (auto) 5.8, Absolute Lymphs (auto) 4.90 H, Nucleated RBC % 0, PT 11.6 L, INR 0.9, APTT 28.2, Sodium 140, Potassium 3.3 L, Chloride 104, Carbon Dioxide 28.0, Anion Gap 8, BUN 14, Creatinine 0.97, Estim Creat Clear Calc 75.26, Est GFR (MDRD) Af Amer 76, Est GFR (MDRD) Non-Af 63, BUN/Creatinine Ratio 14.4, Glucose 114 H, Calcium 9.4, Troponin I High Sens 4 Imaging Radiology Impression Brain CT 02/05/24 21:38 IMPRESSION: Normal unenhanced CT scan of the brain. Electronically Signed: Tien Dunn MD at 21:56 EDT Reading Location ID and State: [facility] / [place] Tel , Service support , ADDENDUM: 02/05/242204 IMPRESSION: Normal unenhanced CT scan of the brain. N.B. : The above Results were Read Back by Tien Dunn MD to Arnie Zaldivar MD, and understanding confirmed on 02/05/2024 21:58:08 (ET). Electronically Signed: Tien Dunn MD at 21:56 EDT , ADDENDUM: 02/05/242206 IMPRESSION: Normal unenhanced CT scan of the brain. N.B. : The above Results were Read Back by Tien Dunn MD to Arnie Zaldivar MD, and understanding confirmed on 02/05/2024 22:00:25 (ET). Electronically Signed: Tien Dunn MD at 21:56 EDT , Head/Neck CTA 02/05/24 21:38 IMPRESSION: Sensitivity limited due to suboptimal 3-D reformats otherwise Normal CTA Head and neck with contrast. Electronically Signed: Tien Dunn MD at 22:14 EDT , ADDENDUM: 02/05/24 2222 IMPRESSION: Sensitivity limited due to suboptimal 3-D reformats otherwise Normal CTA Head and neck with contrast. N.B. : The above Results were Read Back by Tien Dunn MD to Arnie Zaldivar MD, and understanding confirmed on 02/05/2024 22:16:18 (ET). Electronically Signed: Tien Dunn MD at 22:14 EDT , Chest X-Ray 02/05/24 22:42 IMPRESSION: Normal x-ray examination of the chest. Electronically Signed: Tien Dunn MD at 23:11 EDT , Assessment & Plan Assessment/Plan (1) Occipital headache: (2) TIA (transient ischemic attack): PLAN: Plan 1 transient ischemic attack?admit patient to progressive care unit, neurochecks per routine, order MRI noncontrast of head in the morning along with transthoracic echocardiogram. Will also order fasting lipid panel and BMP in the a.m. Would recommend patient continue with baby aspirin as outpatient and have close outpatient follow-up with her primary care doctor 2. Occipital headache?resolved for now we will watch for recurrence 3. DVT prophylaxis?low molecular weight heparin Charges/Coding Visit Charges Inpatient E&M: 19178 Init Hosp L2
[2024-02-05] MEDS: Ondansetron 4 MG/2 ML Vial IV (23:41)
[2024-02-06] VITALS (9 sets, daily range): BP systolic 142–173; BP diastolic 68–80; PULSE 70–112; RESP 16–18; TEMP 36.7–36.9; O2SAT 93–100; BMI 39.2
[2024-02-06 00:41] LABS: Cholesterol 260 mg/dL (200); High Density Lipoprotein 41 mg/dL; Triglycerides 468 mg/dL
--- NOTE | 2024-02-06 05:55 | MRI_ITS ---
HISTORY: TIA. TECHNIQUE: Multiplanar and multisequence MR images of the brain were obtained without contrast. 292 images. COMPARISON: CT prior day. FINDINGS: BRAIN PARENCHYMA: Very mild chronic white matter changes. No abnormal focus of restricted diffusion. No acute intracranial hemorrhage identified. CSF SPACES: Cerebral ventricles, cortical sulci, and other extra-axial CSF spaces within normal limits in size for age with a partially empty sella configuration. No significant midline shift or other mass effect.No extra-axial fluid collection. VASCULAR SYSTEM: Major intracranial flow voids are maintained. PARANASAL SINUSES AND MASTOID AIR CELLS: No significant air fluid levels. ORBITS: Symmetric contents. MRI/Brain without Contrast IMPRESSION: No evidence for acute infarct. Mild chronic white matter changes. Electronically Signed: Arline Pak MD at 15:14 EDT ,
[2024-02-06 06:49] LABS: Anion Gap 8 (5-15); BUN 13 mg/dL (7-18); Calcium,Total 8.9 mg/dL (8.5-10.1); Chloride 106 mmol/L (98-107); Creatinine, Serum 0.76 mg/dL (0.55-1.02); EST Glomerular Filtration Rate 83 mL/min (>60); Est Glom Filt Rate - Afr Amer 100 mL/min (>60); Estimated Creatinine Clearance 100.47 ml/min; Glucose 106 mg/dL (74-106); Potassium 3.8 mmol/L (3.5-5.1); Sodium Level 139 mmol/L (136-145)
--- NOTE | 2024-02-06 07:29 | PCM.PN.HOSP ---
Reason for Visit Reason for Visit: Diagnoses Transient cerebral ischemic attack, unspecified (02/05/24) Headache, unspecified (02/05/24) Objective Data Objective Data Vital Signs: Vital Signs Temp Pulse Resp BP Pulse Ox O2 Del Method 98.4 F 70 18 142/68 H 96 Room Air 02/06/24 02:58 02/06/24 02:58 02/06/24 02:58 02/06/24 02:58 02/06/24 02:58 02/06/24 02:58 Oxygen Delivery Method Room Air Weight: 235 lb 14.314 oz Body Mass Index (BMI) 39.2 Lab / Micro Data 02/05/24 21:50 02/06/24 05:31 Labs: Laboratory Results - last 24 hr 02/05/24 21:50: WBC 11.7 H, RBC 4.81, Hgb 14.4, Hct 43.0, MCV 89.4, MCH 29.9, MCHC 33.5, RDW Std Deviation 42.6, RDW Coeff of Olivia 13.1, Plt Count 322, MPV 10.0, Immature Gran % (Auto) 0.300, Neut % (Auto) 49.3, Lymph % (Auto) 42.0 H, Ellis % (Auto) 6.8, Eos % (Auto) 1.3, Baso % (Auto) 0.3, Absolute Neuts (auto) 5.8, Absolute Lymphs (auto) 4.90 H, Nucleated RBC % 0, PT 11.6 L, INR 0.9, APTT 28.2, Sodium 140, Potassium 3.3 L, Chloride 104, Carbon Dioxide 28.0, Anion Gap 8, BUN 14, Creatinine 0.97, Estim Creat Clear Calc 75.26, Est GFR (MDRD) Af Amer 76, Est GFR (MDRD) Non-Af 63, BUN/Creatinine Ratio 14.4, Glucose 114 H, Calcium 9.4, Troponin I High Sens 4, Triglycerides 468 H, Cholesterol 260 H, LDL Cholesterol TNP, VLDL Cholesterol TNP, HDL Cholesterol 41 02/06/24 05:31: Sodium 139, Potassium 3.8, Chloride 106, Carbon Dioxide 25.0, Anion Gap 8, BUN 13, Creatinine 0.76, Estim Creat Clear Calc 100.47, Est GFR (MDRD) Af Amer 100, Est GFR (MDRD) Non-Af 83, BUN/Creatinine Ratio 17.0, Glucose 106, Calcium 8.9 Radiography Diagnostic Testing: Radiology Impression Brain CT 02/05/24 21:38 IMPRESSION: Normal unenhanced CT scan of the brain. Electronically Signed: Tien Dunn MD at 21:56 EDT Reading Location ID and State: [address] [place] [address] Tel , Service support , ADDENDUM: 02/05/24 2205 IMPRESSION: Normal unenhanced CT scan of the brain. N.B. : The above Results were Read Back by Tien Dunn MD to Arnie Zaldivar MD, and understanding confirmed on 02/05/2024 21:58:08 (ET). Electronically Signed: Tien Dunn MD at 21:56 EDT Reading Location ID and State: [address] [place] [address] Tel , Service support , ADDENDUM: 02/05/242206 IMPRESSION: Normal unenhanced CT scan of the brain. N.B. : The above Results were Read Back by Tien Dunn MD to Arnie Zaldivar MD, and understanding confirmed on 02/05/2024 22:00:25 (ET). Electronically Signed: Tien Dunn MD at 21:56 EDT Reading Location ID and State: [address] [place] [address] Tel , Service support , Head/Neck CTA 02/05/24 21:38 IMPRESSION: Sensitivity limited due to suboptimal 3-D reformats otherwise Normal CTA Head and neck with contrast. Electronically Signed: Tien Dunn MD at 22:14 EDT Reading Location ID and State: [address] [place] [address] Tel , Service support , ADDENDUM: 02/05/24 2222 IMPRESSION: Sensitivity limited due to suboptimal 3-D reformats otherwise Normal CTA Head and neck with contrast. N.B. : The above Results were Read Back by Tien Dunn MD to Arnie Zaldivar MD, and understanding confirmed on 02/05/2024 22:16:18 (ET). Electronically Signed: Tien Dunn MD at 22:14 EDT , Chest X-Ray 02/05/24 22:42 IMPRESSION: Normal x-ray examination of the chest. Electronically Signed: Tien Dunn MD at 23:11 EDT , Assessment & Plan Assessment/Plan (1) Occipital headache: (2) TIA (transient ischemic attack): PLAN: Plan 58-year-old female came with dizziness, headache for past 1 to 2 weeks, right-sided numbness/paresthesia involving face right arm and right leg, blurred vision in the right eye started about an hour prior to ED presentation. Denies partial or complete loss of vision. History of hypertension do not double vision. 1 transient ischemic attack?patient is being admitted in PCU. PT, OT, speech therapy/swallow evaluation and management, nursing NIH stroke scale, BP and glucose monitoring and control as per stroke protocol. Lipid profile shows triglyceride high 468, total cholesterol 260, LDL VLDL could not be calculated. HDL 41. TSH, A1c ordered. MRI brain and 2D echo with bubble contrast study ordered CT head unenhanced and CTA head and neck does not show acute abnormality and reported normal. Twelve-lead EKG shows sinus rhythm at 84. QT 364 ms. Low voltage. Patient was evaluated by telestroke team. NIH stroke scale 0. Assessment was TIA. Thrombolytic was not indicated and not recommended. As per neurologist right-sided weakness send resolved 2. Hypertension: Blood pressure control as per stroke guidelines. 3. Occipital headache?resolved for now we will watch for recurrence 4. Dyslipidemia: As mentioned above 5. DVT prophylaxis?low molecular weight heparin 6. Obesity grade 2: BMI 39 point EKG prescribed with Laboratory Results 02/05/24 21:50: WBC 11.7 H, RBC 4.81, Hgb 14.4, Hct 43.0, MCV 89.4, MCH 29.9, MCHC 33.5, RDW Std Deviation 42.6, RDW Coeff of Olivia 13.1, Plt Count 322, MPV 10.0, Immature Gran % (Auto) 0.300, Neut % (Auto) 49.3, Lymph % (Auto) 42.0 H, Ellis % (Auto) 6.8, Eos % (Auto) 1.3, Baso % (Auto) 0.3, Absolute Neuts (auto) 5.8, Absolute Lymphs (auto) 4.90 H, Nucleated RBC % 0, PT 11.6 L, INR 0.9, APTT 28.2, Sodium 140, Potassium 3.3 L, Chloride 104, Carbon Dioxide 28.0, Anion Gap 8, BUN 14, Creatinine 0.97, Estim Creat Clear Calc 75.26, Est GFR (MDRD) Af Amer 76, Est GFR (MDRD) Non-Af 63, BUN/Creatinine Ratio 14.4, Glucose 114 H, Calcium 9.4, Troponin I High Sens 4, Triglycerides 468 H, Cholesterol 260 H, LDL Cholesterol TNP, VLDL Cholesterol TNP, HDL Cholesterol 41 02/06/24 05:31: Sodium 139, Potassium 3.8, Chloride 106, Carbon Dioxide 25.0, Anion Gap 8, BUN 13, Creatinine 0.76, Estim Creat Clear Calc 100.47, Est GFR (MDRD) Af Amer 100, Est GFR (MDRD) Non-Af 83, BUN/Creatinine Ratio 17.0, Glucose 106, Calcium 8.9
--- NOTE | 2024-02-06 07:52 | ECHOD_ITS ---
Reason For Study: TIA/CVA Procedure This was a 2D Doppler, Color Flow transthoracic echocardiogram. Exam performed portable in patient room. Left Ventricle Normal LV size. Left ventricular systolic function is normal. The left ventricular ejection fraction is 65 %. No regional wall motion abnormalities noted. Right Ventricle Normal right ventricle. Normal systolic function. Atria Normal left atrium. Normal right atrium. Mitral Valve Normal mitral valve. Tricuspid Valve Normal tricuspid valve. Aortic Valve Normal aortic valve. Trisinus/trileaflet aortic valve. Pulmonic Valve Normal pulmonic valve. Great Vessels Normal aortic root. The pulmonary artery is normal size. Normal inferior vena cava. Pericardium/Pleural No pericardial effusion. MMode/2D Measurements & Calculations LVIDd: 4.4 cm IVSd: 1.0 cm Ao root diam: 2.8 cm LVIDs: 2.6 cm LVPWd: 0.91 cm RVDd: 3.3 cm FS: 40.0 % LAV(MOD-bp): 24.7 ml LVAd ap4: 25.1 cm2 SV(MOD-sp4): 46.0 ml LAV(MOD-bp) Indexed: 11.9 ml/m2 LVLd ap4: 7.6 cm LAV(MOD-sp2): 19.0 ml EDV(MOD-sp4): 68.5 ml LAV(MOD-sp4): 25.0 ml EDV(sp4-el): 70.9 ml LVAs ap4: 12.3 cm2 LVLs ap4: 5.9 cm ESV(MOD-sp4): 22.5 ml ESV(sp4-el): 21.9 ml EF(MOD-sp4): 67.1 % EF(sp4-el): 69.1 % SV(sp4-el): 49.1 ml LA A4 area: 11.8 cm2 LA dimension(2D): 3.9 cm RA A4 area: 11.9 cm2 TAPSE: 2.2 cm Time Measurements MV dec time: 0.21 sec Doppler Measurements & Calculations MV E max best: 92.9 cm/sec Lat Peak E' Best: 11.3 cm/sec Med Peak E' Best: 9.2 cm/sec MV A max best: 78.9 cm/sec E/E' lat: 8.2 E/E' med: 10.1 MV E/A: 1.2 Ao V2 max: 126.8 cm/sec LV V1 max: 121.9 cm/sec MV dec slope: 437.3 cm/sec2 Ao max P.4 mmHg LV V1 max P.0 mmHg Ao V2 mean: 92.8 cm/sec LV V1 mean P.2 mmHg Ao mean P.9 mmHg LV V1 mean: 83.1 cm/sec Ao V2 VTI: 30.8 cm LV V1 VTI: 27.4 cm AV (velocity ratio): 0.89 PA V2 max: 107.7 cm/sec TR max best: 256.0 cm/sec TR max P.2 mmHg ECHO/Echo Complete Interpretation Summary Normal LV size. Left ventricular systolic function is normal. The left ventricular ejection fraction is 65 %. Structurally normal valves. Ordering Physician: Solitario Dorantes Referring Physician: Rosie Arzola Performed By: Kerline Woodard, SHANELL, RVT
[2024-02-06] MEDS: Aspirin 81 MG TAB.CHEW PO (08:05)
[2024-02-06 08:17] LABS: Thyroid Stim Hormone (TSH) 3.47 uIU/mL (0.358-3.74)
[2024-02-06 08:59] LABS: Hemoglobin A1c 5.6 % (3.8-5.6)
[2024-02-06] MEDS: 0.9% Saline Lock 10 ML Syringe IV (13:18)
[2024-02-06] MEDS: LORazepam 2 MG/ML Syringe 0.5 MG IV (13:18)
--- NOTE | 2024-02-06 14:29 | DCINST_ITS ---
Discharge Instructions Diet Discharge Diet: No restrictions Activity Discharge Activity: Return to Normal Activity Weight Bearing Status: Weight bearing as tolerated Dressing / Incision Call your doctor if you observe: Fever of 101 or Higher, Coldness, Increased Pain, Numbness or Tingling, Change in Color, Inability to urinate, Inability to have a bowel movement, Shortness of breath, Dizziness, Fainting spells, Swelling in the ankles, Chest pain, Prolonged hiccupping, Increased palpitations (irregular heartbeat) and Calf discomfort Follow Up Care When: IN 2 WEEKS Test Results: Test results from this visit will be discussed in further detail at your follow- up appointment, if applicable. Discharge Plan Admission Admit Date/Time: 02/05/24 23:29 Primary Reason for Your Visit: Possible TIA or atypical migraine. Dyslipidemia, hypertriglyceridemia Attending Provider: Solitario Dorantes Primary Care Provider: Rosie Arzola NP Consulting Providers: Jorge Wiggins Discharge Orders/Prescriptions Prescriptions: New aspirin 81 mg Tablet,Chewable 81 mg PO BREAKFAST 30 Days Qty: 30 3RF fenofibrate 54 mg tablet 54 mg PO DAILY 30 Days Qty: 30 2RF Rx Instructions: Watch for myalgia or muscle weakness. chlorthalidone 25 mg tablet 12.5 mg PO DAILY Qty: 30 2RF Rx Instructions: Hold if serum sodium is less than 130 mg/dL Continued losartan 100 mg tablet 100 mg PO DAILY Patient Comments: Take 1 tablet (100 mg) by mouth once daily. progesterone micronized 200 mg capsule 200 mg PO QHS No Action Biest 0.25 mg cream DAILY Referrals / Follow Up: Fred Cleveland MD [Non-Staff] - Within 1 Month (Possible TIA or atypical migraine) Rosie Arzola NP, SPECIAL PROGRAMS DIRECTOR-C [Primary Care Provider] - Disposition Disposition (needs filled in before D/C Order can be placed): Home, Self Care
--- NOTE | 2024-02-06 14:52 | CASEMGMT ---
SW completed a PHQ 9 with patient. Patient scored a 10 which indicates moderate depression. Patient was open to counseling resources. Fozia MEJIA
[2024-02-06] MEDS: Lisinopril 5 MG Tablet PO (15:06)
--- NOTE | 2024-02-06 15:32 | PCM.DC.SUM ---
Providers Date of Admission: 02/05/24 Date of Discharge: 02/06/24 Primary Care Physician: Rosie Arzola, VIANNEYC Reason For Visit: TRANSIENT ISCHEMIC ATTACK Diagnosis Discharge Diagnosis (1) Occipital headache: Status: Acute Code(s): R51.9 - Headache, unspecified (2) TIA (transient ischemic attack): Status: Acute Code(s): G45.9 - Transient cerebral ischemic attack, unspecified Plan 58-year-old female came with dizziness, headache for past 1 to 2 weeks, right-sided numbness/paresthesia involving face right arm and right leg, blurred vision in the right eye started about an hour prior to ED presentation. Denies partial or complete loss of vision. History of hypertension do not double vision. 1. Transient ischemic attack:?patient is being admitted in PCU. PT, OT, speech therapy/swallow evaluation and management, nursing NIH stroke scale, BP and glucose monitoring and control as per stroke protocol. Lipid profile shows triglyceride high 468, total cholesterol 260, LDL VLDL could not be calculated. HDL 41. TSH, A1c ordered. MRI brain and 2D echo with bubble contrast study ordered CT head unenhanced and CTA head and neck does not show acute abnormality and reported normal. Twelve-lead EKG shows sinus rhythm at 84. QT 364 ms. Low voltage. Patient was evaluated by telestroke team. NIH stroke scale 0. Assessment was TIA. Thrombolytic was not indicated and not recommended. As per neurologist right-sided weakness send resolved MRI brain shows no acute infarct. Bubble contrast read negative for [id number] interatrial shunt. Reported restriction to normal valves EF 65%. Clinical possibility of atypical migraine with occipital headache. Advised follow-up with neurology in 1 week. Patient discharged on baby aspirin and Tricor. Patient does not want to take a statin probably from allergy and therefore agreed for Tricor. Patient already on maximum dose of losartan 100 mg daily and therefore chlorthalidone 12.5 mg daily started and prescription ordered. Prescription sent to patient's preferred pharmacy 2. Hypertension: Blood pressure control as per stroke guidelines. 3. Occipital headache?resolved for now we will watch for recurrence 4. Dyslipidemia: As mentioned above 5. DVT prophylaxis?low molecular weight heparin 6. Obesity grade 2: BMI 39.3 kg/m?. Weight loss counseling done. Discharge medication reconciliation done. Discharge follow-up instructions completed. Discharge process discussed with the patient and all questions were answered to patient's satisfaction. Follow with PCP in 1 to 2 weeks Total time spent, exact 35 minutes on discharge meds reconciliation, examination, coordination of care with nurses and ancillary staff, review of imaging and blood test and discussion with the patient on follow-up instructions. Laboratory Results 02/05/24 21:50: WBC 11.7 H, RBC 4.81, Hgb 14.4, Hct 43.0, MCV 89.4, MCH 29.9, MCHC 33.5, RDW Std Deviation 42.6, RDW Coeff of Olivia 13.1, Plt Count 322, MPV 10.0, Immature Gran % (Auto) 0.300, Neut % (Auto) 49.3, Lymph % (Auto) 42.0 H, Tama % (Auto) 6.8, Eos % (Auto) 1.3, Baso % (Auto) 0.3, Absolute Neuts (auto) 5.8, Absolute Lymphs (auto) 4.90 H, Nucleated RBC % 0, PT 11.6 L, INR 0.9, APTT 28.2, Sodium 140, Potassium 3.3 L, Chloride 104, Carbon Dioxide 28.0, Anion Gap 8, BUN 14, Creatinine 0.97, Estim Creat Clear Calc 75.26, Est GFR (MDRD) Af Amer 76, Est GFR (MDRD) Non-Af 63, BUN/Creatinine Ratio 14.4, Glucose 114 H, Calcium 9.4, Troponin I High Sens 4, Triglycerides 468 H, Cholesterol 260 H, LDL Cholesterol TNP, VLDL Cholesterol TNP, HDL Cholesterol 41 02/06/24 05:31: Sodium 139, Potassium 3.8, Chloride 106, Carbon Dioxide 25.0, Anion Gap 8, BUN 13, Creatinine 0.76, Estim Creat Clear Calc 100.47, Est GFR (MDRD) Af Amer 100, Est GFR (MDRD) Non-Af 83, BUN/Creatinine Ratio 17.0, Glucose 106, Calcium 8.9 Clinical Impression(s) from Imaging Studies Brain CT 02/05/24 21:38 IMPRESSION: Normal unenhanced CT scan of the brain. Head/Neck CTA 02/05/24 21:38 IMPRESSION: Sensitivity limited due to suboptimal 3-D reformats otherwise Normal CTA Head and neck with contrast. Chest X-Ray 02/05/24 22:42 IMPRESSION: Normal x-ray examination of the chest. Brain MRI 02/06/24 05:55 IMPRESSION: No evidence for acute infarct. Mild chronic white matter changes. Echocardiogram 02/06/24 07:52 Interpretation Summary Normal LV size. Left ventricular systolic function is normal. The left ventricular ejection fraction is 65 %. Structurally normal valves. Ordering Physician: Solitario Dorantes Referring Physician: Rosie Arzola Performed By: Kerline Woodard, SHANELL, RVT Medications at Discharge Home Medications Biest DAILY 02/05/24 losartan 100 mg tablet 100 mg PO DAILY 02/05/24 progesterone micronized 200 mg capsule 200 mg PO QHS 02/05/24 aspirin 81 mg chewable tablet 81 mg PO BREAKFAST 30 days #30 tabs 02/06/24 chlorthalidone 25 mg tablet 12.5 mg (1/2 x 25 mg) PO DAILY #30 tabs 02/06/24 fenofibrate 54 mg tablet 54 mg PO DAILY 1 month #30 tabs 02/06/24 Physical Exam Narrative Headache has resolved. Patient does not have any numbness or paresthesia. No occipital headache or blurry vision or loss of vision. Physical exam General: Alert, Oriented x3, Cooperative HEENT: Atraumatic, PERRLA, EOMI, Normocephalic Oral: No Gingival or Mucosal Lesions/ Ulcerations Neck: Supple, No JVD, Negative Carotid Bruits Chest wall/Lungs: Air entry diminished in bilateral lung bases. No crepitation/rhonchi Cardiovascular: Regular rate, Regular Rhythm, Normal S1, Normal S2, No M/G/R Abdomen: Bowel Sounds Present, Soft, Non Tender, Non-Distended : No dysuria. No renal angle tenderness. No suprapubic tenderness. Extremities: No edema, Capillary Refill Less than 3 Seconds Skin: No rashes, No breakdown Musculoskeletal: No Tenderness to Palpation of Joints or Extremities. ROM full and adequate. Neurological: Cranial nerves II-XII grossly intact, DTR 2+/4. No acute focal neurological deficit. NIH stroke scale 0. Psych/Mental Status: Normal Affect, Appropriate. Weight / BMI Weight Weight: 235 lb 14.314 oz Body Mass Index (BMI) 39.2 ABG / Lab / Microbiology Data 02/05/24 21:50 02/06/24 05:31 Laboratory: Laboratory Results - last 24 hr 02/05/24 21:50: WBC 11.7 H, RBC 4.81, Hgb 14.4, Hct 43.0, MCV 89.4, MCH 29.9, MCHC 33.5, RDW Std Deviation 42.6, RDW Coeff of Olivia 13.1, Plt Count 322, MPV 10.0, Immature Gran % (Auto) 0.300, Neut % (Auto) 49.3, Lymph % (Auto) 42.0 H, Tama % (Auto) 6.8, Eos % (Auto) 1.3, Baso % (Auto) 0.3, Absolute Neuts (auto) 5.8, Absolute Lymphs (auto) 4.90 H, Nucleated RBC % 0, PT 11.6 L, INR 0.9, APTT 28.2, Sodium 140, Potassium 3.3 L, Chloride 104, Carbon Dioxide 28.0, Anion Gap 8, BUN 14, Creatinine 0.97, Estim Creat Clear Calc 75.26, Est GFR (MDRD) Af Amer 76, Est GFR (MDRD) Non-Af 63, BUN/Creatinine Ratio 14.4, Glucose 114 H, Calcium 9.4, Troponin I High Sens 4, Triglycerides 468 H, Cholesterol 260 H, LDL Cholesterol TNP, VLDL Cholesterol TNP, HDL Cholesterol 41 02/06/24 05:31: Sodium 139, Potassium 3.8, Chloride 106, Carbon Dioxide 25.0, Anion Gap 8, BUN 13, Creatinine 0.76, Estim Creat Clear Calc 100.47, Est GFR (MDRD) Af Amer 100, Est GFR (MDRD) Non-Af 83, BUN/Creatinine Ratio 17.0, Glucose 106, Hemoglobin A1c 5.6, Calcium 8.9, TSH 3.47 Radiography Diagnostic Testing: Radiology Impression Brain CT 02/05/24 21:38 IMPRESSION: Normal unenhanced CT scan of the brain. Electronically Signed: Tien Dunn MD at 21:56 EDT Reading Location ID and State: [address] [place] [address] Tel , Service support , ADDENDUM: 02/05/242204 IMPRESSION: Normal unenhanced CT scan of the brain. N.B. : The above Results were Read Back by Tien Dunn MD to Arnie Zaldivar MD, and understanding confirmed on 02/05/2024 21:58:08 (ET). Electronically Signed: Tien Dunn MD at 21:56 EDT Reading Location ID and State: [address] [place] [address] Tel , Service support , ADDENDUM: 02/05/242206 IMPRESSION: Normal unenhanced CT scan of the brain. N.B. : The above Results were Read Back by Tien Dunn MD to Arnie Zaldivar MD, and understanding confirmed on 02/05/2024 22:00:25 (ET). Electronically Signed: Tien Dunn MD at 21:56 EDT Reading Location ID and State: [address] [place] [address] Tel , Service support , Head/Neck CTA 02/05/24 21:38 IMPRESSION: Sensitivity limited due to suboptimal 3-D reformats otherwise Normal CTA Head and neck with contrast. Electronically Signed: Tien Dunn MD at 22:14 EDT , ADDENDUM: 02/05/242221 IMPRESSION: Sensitivity limited due to suboptimal 3-D reformats otherwise Normal CTA Head and neck with contrast. N.B. : The above Results were Read Back by Tien Dunn MD to Arnie Zaldivar MD, and understanding confirmed on 02/05/2024 22:16:18 (ET). Electronically Signed: Tien Dunn MD at 22:14 EDT , Chest X-Ray 02/05/24 22:42 IMPRESSION: Normal x-ray examination of the chest. Electronically Signed: Tien Dunn MD at 23:11 EDT , Brain MRI 02/06/24 05:55 IMPRESSION: No evidence for acute infarct. Mild chronic white matter changes. Electronically Signed: Arline Pak MD at 15:14 EDT , Echocardiogram 02/06/24 07:52 Interpretation Summary Normal LV size. Left ventricular systolic function is normal. The left ventricular ejection fraction is 65 %. Structurally normal valves. Ordering Physician: Solitario Dorantes Referring Physician: Rosie Arzola Performed By: Kerline Woodard, SHANELL, RVT D/C Instructions Discharge Diet: No restrictions Weight Bearing Status: Weight bearing as tolerated Call your doctor if you observe: Fever of 101 or Higher, Coldness, Increased Pain, Numbness or Tingling, Change in Color, Inability to urinate, Inability to have a bowel movement, Shortness of breath, Dizziness, Fainting spells, Swelling in the ankles, Chest pain, Prolonged hiccupping, Increased palpitations (irregular heartbeat) and Calf discomfort When: IN 2 WEEKS Meaningful Use Info Meaningful Use Meaningful Use Diagnoses (Choose all that apply): None applicable Ischemic Stroke Statin Dosing Therapy Reference: STATIN DOSE THERAPY REFERENCE: * Patients > 75 years receive moderate or high dose statin therapy. * Patients 75 years or YOUNGER should receive HIGH intensity statin dose unless contraindicated. You will be required to document reason for non-treatment if statin daily dose does not meet guidelines. HIGH DOSE STATIN THERAPY DAILY Atorvastatin > than or = to 40 mg Rosuvastatin > than or = to 20 mg Amlodipine + Atorvastatin > than or = to 2.5/40 mg Ezetimibe + Simvastatin 10/80 mg Simvastatin 80mg Discharge Plan Admission Admit Date/Time: 02/05/24 23:29 Primary Reason for Your Visit: Possible TIA or atypical migraine. Dyslipidemia, hypertriglyceridemia Attending Provider: Solitario Dorantes Primary Care Provider: Rosie Arzola NP Consulting Providers: Jorge Wiggins Discharge Orders/Prescriptions Prescriptions: New aspirin 81 mg Tablet,Chewable 81 mg PO BREAKFAST 30 Days Qty: 30 3RF fenofibrate 54 mg tablet 54 mg PO DAILY 30 Days Qty: 30 2RF Rx Instructions: Watch for myalgia or muscle weakness. chlorthalidone 25 mg tablet 12.5 mg PO DAILY Qty: 30 2RF Rx Instructions: Hold if serum sodium is less than 130 mg/dL Continued losartan 100 mg tablet 100 mg PO DAILY Patient Comments: Take 1 tablet (100 mg) by mouth once daily. progesterone micronized 200 mg capsule 200 mg PO QHS No Action Biest 0.25 mg cream DAILY Referrals / Follow Up: Fred Cleveland MD [Non-Staff] - Within 1 Month (Possible TIA or atypical migraine) Rosie Arzola SKIN DIVING TEACHER, SKIN DIVING TEACHER-C [Primary Care Provider] - Disposition Disposition (needs filled in before D/C Order can be placed): Home, Self Care Charges/Coding Visit Charges Inpatient E&M: 09221 Disch Hosp >30min
--- NOTE | 2024-02-06 15:42 | CASEMGMT ---
VENANCIO provided patient with a list of mental health providers in her area that take her insurance. Patient thanked VENANCIO. Fozia Walsh TABLE GAMES MANAGERCarlie MEJIA
--- NOTE | 2024-02-06 15:55 | CASEMGMT ---
Patient has order for discharge. RN CM in to discuss needs at discharge. Patient denies needs or help at discharge. Patient had no further questions or concerns.
[2024-02-08 14:50] LABS: Bedside Glucose 110 mg/dL (74-106)
== END 2024-02-06 15:31 | disposition home or self-care (01) ==
LOC: ED 22:37 → PCU 23:35
PROVIDERS: Admitting Provider Family Medicine; Emergency Provider Emergency Medicine; PCP Nurse Practitioner Family; Visit Provider Internal Medicine
DX: G45.9 Transient cerebral ischemic attack, unspecified (principal); E78.5 Hyperlipidemia, unspecified; I10 Essential (primary) hypertension; R51.9 Headache, unspecified; R29.898 Other symptoms and signs involving the musculoskeletal system; R20.0 Anesthesia of skin; H53.8 Other visual disturbances; Z79.899 Other long term (current) drug therapy; E66.9 Obesity, unspecified; Z68.39 Body mass index [BMI] 39.0-39.9, adult
CPT/HCPCS: 70450; 70496; 70498; 70551; 71045; 80048; 80061; 82962; 83036; 84443; 84484; 85025; 85610; 85730; 93005; 93306; 96374; 96375; 99221; 99285; Q9967; A4216; G0378; J2405